=== PATIENT | male | born 1975 | race American Indian/Alaskan Native ===

== ENCOUNTER 2017-02-06 11:37 | Emergency (ER) | payer OTHER ==
[2017-02-06 11:42] VITALS: BMI 36.6
[2017-02-06 11:43] VITALS: BP 124/76; PULSE 101; RESP 20; O2SAT 97
--- NOTE | 2017-02-06 12:43 | C.PDOC ---
History Of Present Illness 41 year old male presents to the ED with complaints of fever, cough, and sore throat for 6 days. Patient states he went to another facility and was given Zithromax however the symptoms still persist. Denies vomiting, diarrhea, SOB, or any other complaints at this time. Time Seen by Provider: 02/06/17 11:51 Chief Complaint (Nursing): Flu-like Symptoms History Per: Patient History/Exam Limitations: no limitations Onset/Duration Of Symptoms: Days Current Symptoms Are (Timing): Still Present Location Of Pain: Throat Associated Symptoms: Fever, Sore Throat, Cough. denies: Vomiting, Diarrhea Ear Symptoms: Bilateral: None Severity: Mild Past Medical History Reviewed: Historical Data, Nursing Documentation, Vital Signs Vital Signs: Last Vital Signs Temp 99.4 F 02/06/17 12:43 Pulse 101 H 02/06/17 11:43 Resp 20 02/06/17 11:43 BP 124/76 02/06/17 11:43 Pulse Ox 97 02/06/17 12:43 - Medical History PMH: Gastritis, Sleep Apnea - [facility] Procedures OTH PLASTIC REPAIR PALAT (08/31/14) PLASTIC OP ON PHARYNX (08/31/14) Family History: States: Unknown Family Hx - Social History Hx Tobacco Use: No Hx Alcohol Use: No Hx Substance Use: No - Immunization History Hx Tetanus Toxoid Vaccination: Yes Hx Influenza Vaccination: Yes Hx Pneumococcal Vaccination: No Review Of Systems Except As Marked, All Systems Reviewed And Found Negative. Constitutional: Positive for: Fever ENT: Positive for: Throat Pain Cardiovascular: Negative for: Palpitations Respiratory: Positive for: Cough. Negative for: Shortness of Breath Gastrointestinal: Negative for: Vomiting, Abdominal Pain, Diarrhea Physical Exam - Physical Exam Appears: Non-toxic, No Acute Distress Skin: Normal Color, Warm, Dry Head: Atraumatic, Normacephalic Eye(s): bilateral: Normal Inspection Oral Mucosa: Moist Throat: Erythema, No Exudate Neck: Supple Chest: Symmetrical, No Deformity Cardiovascular: Rhythm Regular, No Murmur Respiratory: Normal Breath Sounds, No Accessory Muscle Use, No Rales, No Rhonchi , No Wheezing Extremity: Normal ROM, No Deformity Neurological/Psych: Oriented x3, Normal Speech, Normal Cognition ED Course And Treatment O2 Sat by Pulse Oximetry: 97 (Room air) Pulse Ox Interpretation: Normal Medical Decision Making Medical Decision Making: r/o influenza, pna,strep, imaging pending 1240: pt reassesed. fever improving. cxr neg as read by me. will treat empircally for influenza as high suspicion Disposition - Disposition Disposition: HOME/ ROUTINE Disposition Time: 12:42 Condition: STABLE Additional Instructions: please see your doctor. return to er with worsening symptoms or concerns. Prescriptions: Oseltamivir Phosphate [Tamiflu] 75 mg PO BID #10 capsule Instructions: Viral Syndrome (ED) - Clinical Impression Clinical Impression: Influenza-like illness - Scribe Statement The provider has reviewed the documentation as recorded by the Scribe [email or web address]. Provider Attestation: All medical record entries made by the Scribe were at my direction and personally dictated by me. I have reviewed the chart and agree that the record accurately reflects my personal performance of the history, physical exam, medical decision making, and the department course for this patient. I have also personally directed, reviewed, and agree with the discharge instructions and disposition.
[2017-02-06 12:44] VITALS: TEMP 99.4
--- NOTE | 2017-02-06 16:43 | RAD ---
HISTORY: cough COMPARISON: No prior. TECHNIQUE: Chest PA and lateral FINDINGS: LUNGS: No active pulmonary disease. PLEURA: No significant pleural effusion identified. No pneumothorax apparent. CARDIOVASCULAR: Normal. OSSEOUS STRUCTURES: No significant abnormalities. VISUALIZED UPPER ABDOMEN: Normal. OTHER FINDINGS: None. IMPRESSION: No active disease.
== END 2017-02-06 12:55 | disposition home or self-care (01) ==
LOC: C.ER 11:37
DX: J11.1 Influenza due to unidentified influenza virus with other respiratory manifestations (principal)

== ENCOUNTER 2017-02-10 00:11 | Emergency (ER) | payer SELFPAY ==
[2017-02-10 00:11] VITALS: BMI 36.6
[2017-02-10 00:18] VITALS: RESP 20
--- NOTE | 2017-02-10 00:34 | C.PDOC ---
History Of Present Illness Pt presents with worsening nasal congestion and sinus pressure. Patient is on amoxicillin, but no improvement. Low grade fever. Tolerating po Time Seen by Provider: 02/10/17 00:34 Chief Complaint (Nursing): Headache History Per: Patient History/Exam Limitations: no limitations Onset/Duration Of Symptoms: Days Current Symptoms Are (Timing): Worse Location Of Pain: Sinus/es, Headache Sick Contacts (Context): None Associated Symptoms: Fever, Sinus Drainage, Myalgias, Nasal Congestion Ear Symptoms: Bilateral: None Severity: Moderate Pain Scale Rating Of: 4 Recent travel outside of the [place]: No Additional History Per: Patient Past Medical History Reviewed: Historical Data, Nursing Documentation, Vital Signs Vital Signs: Last Vital Signs Temp 99.1 F 02/10/17 00:14 Pulse 78 02/10/17 00:14 Resp 20 02/10/17 00:14 BP 123/84 02/10/17 00:14 Pulse Ox 99 02/10/17 00:56 - Medical History PMH: Gastritis, Sleep Apnea - [facility] Procedures OTH PLASTIC REPAIR PALAT (08/31/14) PLASTIC OP ON PHARYNX (08/31/14) Family History: States: No Known Family Hx - Social History Hx Tobacco Use: No Hx Alcohol Use: Yes Hx Substance Use: No - Immunization History Hx Tetanus Toxoid Vaccination: Yes Hx Influenza Vaccination: Yes Hx Pneumococcal Vaccination: No Review Of Systems Constitutional: Positive for: Fever Eyes: Negative for: Vision Change ENT: Positive for: Nose Congestion. Negative for: Throat Pain, Throat Swelling Cardiovascular: Negative for: Chest Pain Respiratory: Positive for: Cough. Negative for: Shortness of Breath Gastrointestinal: Negative for: Nausea, Vomiting, Abdominal Pain Musculoskeletal: Negative for: Back Pain Neurological: Negative for: Weakness, Numbness Psych: Negative for: Anxiety Physical Exam - Physical Exam Appears: Non-toxic, No Acute Distress Skin: Warm, Dry Eye(s): bilateral: Normal Inspection Ear(s): Bilateral: Normal Nose: Discharge, No Tenderness, No Septal Hematoma, Other (congested mucosa) Lips: Other (dry) Throat: No Erythema, No Exudate, No Drooling Neck: Supple Chest: Symmetrical Cardiovascular: Rhythm Regular Respiratory: No Rales, No Rhonchi, No Wheezing Neurological/Psych: Oriented x3, Normal Speech, Normal Cognition Gait: Steady ED Course And Treatment - Laboratory Results Result Diagrams: 02/10/17 01:34 02/10/17 01:34 O2 Sat by Pulse Oximetry: 99 Pulse Ox Interpretation: Normal Progress Note: [facility] work, ivf, ct scan Reevaluation Time: 04:14 Reassessment Condition: Improved Medical Decision Making Medical Decision Making: Upon provider reevaluation patient is feeling better, is medically stable, and requires no further treatment in the ED at this time. Patient will be discharged home with Rx for augmentin, nasonex and antivert. Counseling was provided and all questions were answered regarding diagnosis and need for follow up with the referred clinic. There is agreement to discharge plan. Return if symptoms persist or worsen. Disposition Counseled Patient/Family Regarding: Studies Performed, Diagnosis, Need For Followup, Rx Given - Disposition Referrals: Beatrice Martinez MD [Medical Doctor] - Alexis Macdonald MD [Staff Provider] - Disposition: HOME/ ROUTINE Disposition Time: 00:34 Condition: FAIR Prescriptions: Mometasone [Asmanex Twisthaler 110 MCG] 2 puff INH DAILY #1 inhaler Amoxicillin/Clavulanate [Augmentin 875 MG-125 MG] 1 tab PO BID #14 tab Meclizine [Meclizine*] 25 mg PO Q6 #30 tab Instructions: Sinusitis (ED) - Clinical Impression Clinical Impression: Sinusitis
[2017-02-10] MEDS ORDERED: Sodium Chloride 0.9% 1,000 ML IV ONE (00:50)
[2017-02-10] MEDS ORDERED: MethylPREDNISolone 40 mg Vial IVP STA (00:50)
[2017-02-10] MEDS ORDERED: Sodium Chloride 0.9% 1,000 ML ONE (00:56)
[2017-02-10 01:41] LABS: BASO # 0.1 K/uL (0.0-0.2); BASO % 0.9 % (0.0-2.0); EOS # 0.3 K/uL (0.0-0.7); EOS % 2.8 % (0.0-4.0); LYMPH # 1.5 K/uL (1.0-4.3); LYMPH % 13.8 % (20.0-40.0); MEAN CELL VOLUME 84.7 fL (80.0-94.0); MEAN CORPUSCULAR HEMOGLOBIN 27.4 pg (27.0-31.0); MEAN CORPUSCULAR HGB CONC 32.4 g/dL (33.0-37.0); MONO % 9.6 % (0.0-10.0); NRBC % 0.1 % (0.0-2.0); WHITE BLOOD COUNT 10.9 K/uL (4.8-10.8)
[2017-02-10] MEDS ORDERED: cefTRIAXone IV 1 gm in Dextros 50 ML IVPB ONE ×2 (02:15→02:34)
[2017-02-10 02:23] LABS: BLOOD UREA NITROGEN 11 mg/dL (9-20); CALCIUM 8.4 mg/dl (8.6-10.4); CARBON DIOXIDE 23 mmol/L (22-30); CHLORIDE 101 mmol/L (98-107); GFR AFRICAN-AMERICAN > 60; GLUCOSE,RANDOM 96 mg/dL (75-110); SODIUM 139 mmol/L (132-148)
[2017-02-10 02:24] LABS: POTASSIUM 5.4 mmol/L (3.6-5.2)
[2017-02-10 05:15] VITALS: BP 123/78; PULSE 65; TEMP 97.9; O2SAT 95
--- NOTE | 2017-02-10 08:23 | CT ---
PROCEDURE: CT HEAD WITHOUT CONTRAST. HISTORY: headache, frontal sinus pain COMPARISON: None available. TECHNIQUE: Axial computed tomography images were obtained through the head/brain without intravenous contrast. Radiation dose: Total exam DLP = 939 mGy-cm. FINDINGS: HEMORRHAGE: No intracranial hemorrhage. BRAIN: No mass effect or edema. No atrophy or chronic microvascular ischemic changes. VENTRICLES: Unremarkable. No hydrocephalus. CALVARIUM: Unremarkable. PARANASAL SINUSES: Opacified left maxillary sinus, partially imaged. MASTOID AIR CELLS: Unremarkable as visualized. No inflammatory changes. OTHER FINDINGS: None. IMPRESSION: Opacified left maxillary sinus, partially imaged. This may represent acute sinusitis. These findings were preliminarily reported at 1:57 a.m. on 02/10/[address] Umesh Saunders from [facility].
== END 2017-02-10 05:15 | disposition home or self-care (01) ==
LOC: C.ER 00:11
DX: J32.9 Chronic sinusitis, unspecified (principal)
CPT/HCPCS: 70450; 80048; 85025; 96361; 96374; 96375; 99285; J0696; J1885; J2920; J7040